=== PATIENT | male | born 1995 | race Caucasian/White ===

== ENCOUNTER 2021-05-20 06:00 | Emergency (ER) | payer OTHER ==
[~2021-05-20] VITALS: Ht 167.6 cm; Wt 85.0 kg
--- NOTE | 2021-05-20 08:14 | REP ---
INDICATION: TRAUMA/ DECREASED ROM COMPARISON: None. TECHNIQUE: Internal rotation, external rotation, and Y view. FINDINGS: No acute fracture or dislocation. The acromioclavicular and glenohumeral joints are intact. No periarticular calcifications or degenerative changes are appreciated. Sub acromial space is normal. Surrounding soft tissues are unremarkable. IMPRESSION: Normal left shoulder radiographs. <Electronically signed by Frank Odom > 05/20/21 0893
[2021-05-20 10:53] VITALS: BP 115/62
== END 2021-05-20 11:01 | disposition home or self-care (01) ==
LOC: M ED 06:00
DX: S40.012A Contusion of left shoulder, initial encounter (principal); S43.52XA Sprain of left acromioclavicular joint, initial encounter; W18.39XA Other fall on same level, initial encounter; Y92.89 Other specified places as the place of occurrence of the external cause; F17.210 Nicotine dependence, cigarettes, uncomplicated